=== PATIENT | male | born 1970 | race Caucasian/White ===

== ENCOUNTER 2021-08-23 12:12 | Emergency (ER) | payer BC, SELFPAY ==
[2021-08-23 13:30] VITALS: BP 149/96; PULSE 82; RESP 19; TEMP 36.7; O2SAT 96; BMI 28.3
--- NOTE | 2021-08-23 13:56 | HMH.EDUTC ---
[facility] [place] Disposition Clinical Impression: Viral syndrome Disposition: Home, Self-Care Condition on Discharge: Good Instructions: DI for Viral Syndrome, DI for COVID-19 (Suspected or Confirmed ), Preventing the Spread of Coronavirus Discharge Instructions Additional Instructions: *Monitor Temp, Over the counter Motrin or Tylenol as directed/as needed Tylenol every 4 hours and Motrin every 6 hours (as long as your family doctor has told you that you can take it) for fever or pain. and straight to ER if unable to lower temp less than 101.0 after medication given *Warm salt water gargles may help to soothe the throat *Throat Lozenges *Warm fluids like tea with honey may help to soothe the throat *Sleep elevated *Humidifier/Vaporizer Follow up IMMEDIATELY for new or worsening symptoms or no Noticeable improvement over the next 48-72 hours. 911 for difficulty breathing or swallowing You were tested for today for COVID19 your test result should be back in the next 24-48 hours, you may check your results on the [facility] if you have trouble logging on you may call You was given a handout with instructions for Self Quarantine and Self isolation for while you wait on test results and what to do if they are positive If you are positive the Health Dept will be contacting you also Make sure to take your Vitamins Vit. C Vit D and Zinc if you can take them Prescriptions: Benzonatate [Benzonatate 100mg cap] 100 mg PO Q8HP PRN #15 cap PRN Reason: Cough Prescription Printed Referrals: Provider,Referral, MD [Primary Care Provider] - As needed Forms: Work/School Release Time of Disposition: 14:06 Medical Decision Making - Zay Inquiry Pt receiving controlled substance: No Zay was queried for this patient: No Vital Signs: 08/23/21 13:30 Temperature 98.0 F Temperature Source Oral Pulse Rate [Right Brachial] 82 Respiratory Rate 19 Blood Pressure [Right Arm] 149/96 H Blood Pressure Mean [Right Arm] 113 Blood Pressure Source [Right Arm] Automatic Cuff Blood Pressure Position [Right Arm] Sitting 02 Sat by Pulse Oximetry 96 Oxygen Delivery Method Room Air - Lab Data Lab results reviewed: Yes: I reviewed the patient's lab results. Orders (Tests/Meds): ORDERS Category Date Time Status Covid-19 Nasal PCR ([facility]) Routine Lab 08/23/21 13:35 Ordered [facility] [place] HPI - General Stated complaint: fever, congestion, loss of taste Time Seen by Provider: 08/23/21 13:56 Mode of Arrival: Ambulatory Source of Information: Patient Limitations: No Limitations Description of Symptoms (Recalled from Triage Doc. by RN): PATIENT C/O SINUS PRESSURE, CHEST CONGESTION, FEVER, BODY ACHES, AND LOSS OF TASTE AND SMELL X 2 DAYS HEENT Symptoms (Recalled from RN notes): Yes Resp Symptoms (Recalled from RN notes): No Skin Symptoms (Recalled from RN notes): No MS Symptoms (Recalled from RN notes): No Functional Status (Recalled from RN notes): WNL - History of Present Illness Provider Complaint: Patient states that he has having sinus pressure and chest congestion for several days State that today he woke up and noticed he couldnt smell or taste anything and feeling achy and headache States that he has not been around anyone that he is aware of that has COVID but came in to get checked out and tested - Related Data Previous Rx's Medication Instructions Recorded Benzonatate [Benzonatate 100mg 100 mg PO Q8HP PRN #15 cap 08/23/21 cap] Allergies Allergy/AdvReac Type Severity Reaction Status Date / Time No Known Allergies Allergy Unverified 08/03/17 14:12 - Worker's Comp Is this a Worker's Comp case?: No [facility] History - Hepatitis A Screen Drug use history?: No High risk sexual behaviors?: No History of sexually transmitted infection?: No Currently employed?: No Childcare worker?: No Do you have indoor plumbing?: Yes Do you have electricity?: Yes Attestation statement:: This patient has been screened
[2021-08-23 13:58] LABS: UTC Influenza A Antigen Negative (Negative); UTC Influenza B Antigen Negative (Negative)
[2021-08-23 14:09] VITALS: BP 149/96; PULSE 82; RESP 19; TEMP 36.7; O2SAT 96
== END 2021-08-23 14:13 | disposition home or self-care (01) ==
PROVIDERS: Emergency Provider Nurse Practitioner
DX: B34.9 Viral infection, unspecified (principal); Z20.822 Contact with and (suspected) exposure to COVID-19
CPT/HCPCS: 87804; 99202; C9803; G0463; U0003; U0005

== ENCOUNTER 2023-03-17 07:40 | Observation (INO) | payer OTHER, BC, SELFPAY ==
[2023-03-17] VITALS (11 sets, daily range): BP systolic 138–220; BP diastolic 78–135; PULSE 64–81; RESP 12–18; TEMP 36.4–36.6; O2SAT 94–100; BMI 32.8; BMI 28.6
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
--- NOTE | 2023-03-17 07:38 | ECG_ITS ---
APPROVED REPORT Exam: Resting ECG HR:74 bpm ECG Measurements Heart Rate 74 AXES NV 168 P 40 QRSd 105 QRS 101 QT 364 T 55 QTc 391 Conclusion SINUS RHYTHM RIGHT AXIS DEVIATION [QRS AXIS > 100] NONSPECIFIC T-WAVE ABNORMALITY ABNORMAL ECG UNCONFIRMED REPORT Electronically signed by : Cooper Rubio MD 03/17/2023 20:17:01
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
[2023-03-17 07:57] LABS: Basophils # 0.1 K/mm3 (0-0.2); Eosinophils # 0.3 K/mm3 (0.0-0.4); Eosinophils % 3.2 % (0.1-12.0); Hematocrit 44.6 % (42.0-52.0); Hemoglobin 14.5 g/dL (14.1-18.0); Lymphocytes # 2.6 K/mm3 (0.7-4.5); Lymphocytes % 32.3 % (10-50); Mean Corpuscular HGB Conc 32.6 g/dL (31.8-35.4); Mean Corpuscular Hemoglobin 31.2 pg (27.0-31.2); Mean Corpuscular Volume 95.7 fl (80-94); Monocytes # 0.5 K/mm3 (0.1-1.0); Monocytes % 6.7 % (1.7-9.3); Neutrophils # 4.6 K/mm3 (1.8-7.8); Neutrophils % 56.8 % (37.0-80.0); Platelet Count 298 K/mm3 (142-424); Red Blood Count 4.66 M/mm3 (4.60-6.20); Red Cell Distribution Width 12.9 % (11.5-17.5)
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
[2023-03-17 08:09] LABS: Chloride 100 mmol/L (98-107); Potassium 3.7 mmoL/L (3.5-5.1); Sodium 137 mmol/L (136-145)
[2023-03-17 08:11] LABS: Alanine Aminotransferase 46 U/L (12-78); Aspartate Amino Transferase 37 U/L (17-59); Bilirubin,Total 0.8 mg/dl (0.2-1.3); Blood Urea Nitrogen 22 mg/dl (9-20); Estimated Glomerular Filt Rate 49 ml/min (>60); GFR (African American) 59 ML/MIN (>60)
[2023-03-17 08:12] LABS: Albumin Level 4.8 g/dl (3.5-5.0); Albumin/Globulin Ratio 1.6 (1.1-1.8); Alkaline Phosphatase 83 U/L (38-126); Anion Gap 15.7 mEq/L (5-15); Calcium 10.2 mg/dl (8.4-10.2); Carbon Dioxide 25 mmol/L (22.0-30.0); Glucose 317 mg/dl (74-100); Total Protein,Serum 7.8 g/dl (6.3-8.2)
[2023-03-17 08:14] LABS: Activated Partial Thrombo Time 24.1 seconds (22.8-30.6); INR 0.98 (0.9-1.1); Prothrombin Time 10.6 seconds (10.1-12.5)
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
[2023-03-17 08:35] LABS: Troponin I < 0.01 ng/ml (0.00-0.034)
--- NOTE | 2023-03-17 10:08 | PC.NURSE ---
DR STERLING SPEAKING WITH HOSPITALIST FOR ADMISSION
--- NOTE | 2023-03-17 10:23 | PC.NURSE ---
CARE MANAGEMENT NOTIFIED OF ADMISSION
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
--- NOTE | 2023-03-17 10:47 | PC.NURSE ---
report called to nurse on second floor
[2023-03-17 11:32] LABS: Troponin I < 0.01 ng/ml (0.00-0.034)
--- NOTE | 2023-03-17 12:17 | PC.NURSE ---
Blood glucose checked 538, checked again result 303. Dr. Mendoza notified. Lab draw order
[2023-03-17 12:57] LABS: Glucose,Random 296 mg/dL (74-100)
[2023-03-17 14:37] LABS: POC Glucose,Bedside 271 (70-110)
[2023-03-17 15:26] LABS: Troponin I < 0.01 ng/ml (0.00-0.034)
[2023-03-17 17:26] LABS: POC Glucose,Bedside 188 (70-110)
[2023-03-17 20:26] LABS: POC Glucose,Bedside 141 (70-110)
--- NOTE | 2023-03-17 21:58 | PC.NURSE ---
while taking his night time meds patient coughed and groaned out in pain. patient thinks something wrong with his coccyx. yoshi velazquez np notified.
[2023-03-18] VITALS: BP 129/67; PULSE 63; PULSE 69; RESP 18; TEMP 36.6; O2SAT 96
--- NOTE | 2023-03-18 02:16 | PC.NURSE ---
PATIENT RESTING QUIETLY. CPAP IN USE, SOME SNORING NOTED. 02 SATS 96%. NO C/O PAIN AT THIS TIME. SR ON TELE. AT BEDSIDE.. VS STABLE/AFEBRILE.
[2023-03-18 04:00] VITALS: BP 135/75; PULSE 68; RESP 18; TEMP 36.6; O2SAT 95; BMI 29.2
[2023-03-18 05:33] LABS: POC Glucose,Bedside 197 (70-110)
[2023-03-18 06:56] LABS: Basophils # 0.1 K/mm3 (0-0.2); Basophils % 0.7 % (0.1-2.0); Eosinophils # 0.3 K/mm3 (0.0-0.4); Eosinophils % 3.8 % (0.1-12.0); Hematocrit 40.3 % (42.0-52.0); Hemoglobin 13.2 g/dL (14.1-18.0); Lymphocytes # 2.1 K/mm3 (0.7-4.5); Lymphocytes % 24.1 % (10-50); Mean Corpuscular HGB Conc 32.7 g/dL (31.8-35.4); Mean Corpuscular Hemoglobin 31.1 pg (27.0-31.2); Mean Corpuscular Volume 95.1 fl (80-94); Mean Platelet Volume 9.1 fl (7.4-10.4); Monocytes # 0.4 K/mm3 (0.1-1.0); Monocytes % 4.9 % (1.7-9.3); Neutrophils # 5.7 K/mm3 (1.8-7.8); Neutrophils % 66.6 % (37.0-80.0); Platelet Count 231 K/mm3 (142-424); Red Blood Count 4.24 M/mm3 (4.60-6.20); White Blood Count 8.5 K/mm3 (4.8-10.8)
[2023-03-18 07:03] LABS: Chloride 104 mmol/L (98-107); Potassium 4.1 mmoL/L (3.5-5.1); Sodium 136 mmol/L (136-145)
[2023-03-18 07:06] LABS: Anion Gap 11.1 mEq/L (5-15); Blood Urea Nitrogen 17 mg/dl (9-20); Calcium 8.8 mg/dl (8.4-10.2); Carbon Dioxide 25 mmol/L (22.0-30.0); Creatinine Clearance Estimated 111 mL/min (50-200); Estimated Glomerular Filt Rate 70 ml/min (>60); GFR (African American) 85 ML/MIN (>60); Glucose 195 mg/dl (74-100)
[2023-03-18 08:00] VITALS: BP 133/76; PULSE 80; PULSE 97; RESP 16; TEMP 36.7; O2SAT 95; O2SAT 96
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
--- NOTE | 2023-03-23 14:36 | CARE MANAGER ---
Attempted to contact patient related to hospital discharge x2. No Vm option. LEO Sauer
== END 2023-03-18 12:46 | disposition home or self-care (01) ==
LOC: ER 07:56 → 2ND 10:36
PROVIDERS: Admitting Provider Internal Medicine; Emergency Provider Emergency Medicine; Visit Provider Internal Medicine
DX: N17.9 Acute kidney failure, unspecified (principal); S39.012A Strain of muscle, fascia and tendon of lower back, initial encounter; E11.9 Type 2 diabetes mellitus without complications; E78.5 Hyperlipidemia, unspecified; M62.838 Other muscle spasm; E11.65 Type 2 diabetes mellitus with hyperglycemia; V49.40XA Driver injured in collision with unspecified motor vehicles in traffic accident, initial encounter
CPT/HCPCS: 36415; 70450; 70496; 70498; 71045; 71275; 72125; 72128; 72131; 72170; 72192; 73090; 73110; 73120; 74174; 80048; 80053; 82947; 82962; 83036; 84484; 85025; 85610; 85730; 86850; 93005; 99291; G0378; J0131; J2405; Q9967